=== PATIENT | female | born 1985 | race Caucasian/White ===

== ENCOUNTER 2017-12-25 09:34 | Day surgery (SDC) | payer OTHER ==
[~2017-12-25 09:34] MED LIST: NEXIUM20 M1 PO
== END 2017-12-25 13:15 | disposition home or self-care (01) ==
LOC: AMB-ENDOS 09:34
DX: K29.50 Unspecified chronic gastritis without bleeding (principal); K44.9 Diaphragmatic hernia without obstruction or gangrene; K21.0 Gastro-esophageal reflux disease with esophagitis

== ENCOUNTER 2019-01-28 11:09 | Outpatient (CLI) | payer OTHER | END 2019-01-28 11:25 | disposition home or self-care (01) | LOC: EKG 11:09 | DX: K80.10 Calculus of gallbladder with chronic cholecystitis without obstruction (principal) ==

== ENCOUNTER 2019-02-03 10:04 | Day surgery (SDC) | payer OTHER ==
[~2019-02-03 10:04] MED LIST changes: +SINGULAIR10 MG PO
[2019-02-03] MEDS ORDERED: POLY119PG PO (15:56)
[2019-02-03] MEDS ORDERED: ULTRACET PO (15:56)
[2019-02-03] MEDS ORDERED: SURFAK240 M1 PO (15:57)
== END 2019-02-03 18:00 | disposition home or self-care (01) ==
LOC: CIR.AMB 10:04
DX: K80.10 Calculus of gallbladder with chronic cholecystitis without obstruction (principal); K43.2 Incisional hernia without obstruction or gangrene; K42.9 Umbilical hernia without obstruction or gangrene